=== PATIENT | female | born 1955 | race Caucasian/White ===

== ENCOUNTER → 2022-07-16 | Day surgery (SDC) | payer OTHER, BC ==
[~2022-07-16] MED LIST: EPINEPHRINE/PF 1 MG/ML AMP ONE; LIDOCAINE 1% MPF 5 ML VIAL ONE; NA CHLORIDE 0.9% 1,000 ML ONE; propofoL 200 MG/20 ML VIAL IV ONE
--- NOTE | 2022-07-16 16:08 | OP ---
Surgeon: Adama Morales MD Procedure Performed: Colonoscopy. Indications For Procedure: History of Crohn disease, on treatment for surveillance. Plan For Anesthesia: Monitored anesthesia care. Complexity: High due to the patient's oxygen dependence and COPD. Technique: After obtaining informed consent from the patient, explaining risks and complications, wh ich include, but are not limited to bleeding, infection, perforation, and anesthesia complication, th e patient was placed in the left lateral position and sedation was given. From then on, the scope wa s advanced into the rectum and carefully guided up till the terminal ileum. Subsequently, scope grad ually withdrawn while carefully examining the mucosa. Scope withdrawal time was 12 minutes. Quality of prep was fair. Findings: In the terminal ileum, there was very mild inflammation that was seen with some scarring. Biopsies taken. In the colon, for the most part the colonic mucosa appeared completely normal with very rare areas of some minimal inflammation. Right and left-sided biopsies taken. Retroflexion rev ealed grade 1 internal hemorrhoids. Complications: None. Tolerance To Anesthesia: Excellent. Postoperative Diagnosis: Crohn disease. Plan: Await pathology results. Continue current management, medication. Follow up in the GI clinic in 2 weeks. US/MODL Voice ID: [id number] Report ID: [id number]
[2022-07-16 16:13] VITALS: BP 135/87; TEMP 97.1; O2SAT 98
== END ==
LOC: OR 12:08
PROVIDERS: ATTEND Internal Medicine Gastroenterology
PROC: 0DBE8ZX Excision of Large Intestine, Via Natural or Artificial Opening Endoscopic, Diagnostic (ICD-10-PCS; 2022-07-16)
PROC: 0DBM8ZX Excision of Descending Colon, Via Natural or Artificial Opening Endoscopic, Diagnostic (ICD-10-PCS; 2022-07-16)
PROC: 0DBK8ZX Excision of Ascending Colon, Via Natural or Artificial Opening Endoscopic, Diagnostic (ICD-10-PCS; principal; 2022-07-16 14:00)
DX: K50.90 Crohn's disease, unspecified, without complications (principal); R19.7 Diarrhea, unspecified; J44.9 Chronic obstructive pulmonary disease, unspecified; K64.8 Other hemorrhoids
CPT/HCPCS: 45380; 82947; 88305; J2704; J2001; J7030; J0171